=== PATIENT | male | born 1975 | race Caucasian/White ===

== ENCOUNTER 2020-02-29 11:21 | Emergency (ER) | payer OTHER ==
[~2020-02-29] VITALS: Ht 167.6 cm; Wt 90.7 kg
[2020-02-29] MEDS ORDERED: SODIUM CHLORIDE 0.9% 1000ML 1,000 ML ONE (11:42)
[2020-02-29] MEDS ORDERED: SODIUM CHLORIDE 0.9% 1000 ML BAG IV ONE (11:45)
[2020-02-29] MEDS ORDERED: ONDANSETRON HCL INJ 2MG/ML 2ML 2 MG/ML VIAL IV ONE (11:45)
[2020-02-29] MEDS ORDERED: KETOROLAC TROMETHAMINE 30 MG/ML VIAL IV ONE (11:45)
--- NOTE | 2020-02-29 12:41 | Diagnostic Imaging Report ---
EXAM: CT of the abdomen and pelvis without intravenous contrast HISTORY: ^right flank pain COMPARISON: None TECHNIQUE: Abdomen and pelvis were scanned utilizing a multidetector helical scanner. Coronal and sagittal reformations were obtained. DOSE REDUCTION: The examination was performed according to the departmental dose-optimization program, which includes automated exposure control, adjustment of the mA and/or kV according to patient size and/or use of iterative reconstruction technique. FINDINGS: THE ABSENCE OF INTRAVENOUS CONTRAST DECREASES THE SENSITIVITY FOR DETECTION OF FOCAL LESIONS AND VASCULAR PATHOLOGY. LINES and TUBES: None. LOWER THORAX: Unremarkable. HEPATOBILIARY: Possible hepatic segment VIII 1.7 cm hypodense lesion (3, 32). GALLBLADDER: Unremarkable. SPLEEN: Unremarkable. PANCREAS: Unremarkable. ADRENALS: Unremarkable. KIDNEYS/URETERS: Right distal ureteral 0.2 cm stone results in mild proximal hydroureter. Nonobstructing left interpolar 0.2 cm stone. GI TRACT: Few scattered colonic diverticula. PELVIC ORGANS/BLADDER: Unremarkable. LYMPH NODES: Unremarkable VESSELS: Vascular calcifications. PERITONEUM / RETROPERITONEUM: No free air or fluid. BONES: Expansile cystic lesion of the sacrum measures 7 x 3.7 x 4.7 cm (SAT). SOFT TISSUES: Unremarkable. IMPRESSION: The absence of intravenous contrast decreases the sensitivity for detection of focal lesions and vascular pathology. 1. Partially obstructing right distal ureteral 0.2 cm stone with mild proximal hydroureter. 2. Nonobstructing subcentimeter left nephrolithiasis. 3. Cystic sacral lesion measures 7 cm. Recommend nonemergent dedicated MRI with contrast of the sacrum. 4. Possible right hepatic 1.7 cm lesion. Recommend nonemergent MRI hepatic mass protocol. 5. Few scattered colonic diverticula. Signed by: Bertin Gonzalez MD on 02/29/2020 12:37 PM
[2020-02-29 13:01] VITALS: BP 138/71
== END 2020-02-29 13:05 | disposition home or self-care (01) ==
LOC: FSED 11:21
DX: R10.31 Right lower quadrant pain (principal); R11.0 Nausea; N20.1 Calculus of ureter; R56.9 Unspecified convulsions
CPT/HCPCS: 74176; 80053; 81003; 85025; 96374; 96376; 99283; J1885; J2405; J7030